=== PATIENT | male | born 1995 | race Caucasian/White ===

== ENCOUNTER 2021-11-21 16:03 | Emergency (ER) | payer OTHER ==
[~2021-11-21 16:03] MED LIST: DULERA 100 MCG8.8 GM INH; PROAIR HFA8.5 GM INH
[2021-11-21 16:34] LABS: HEMOGLOBIN 14.4 gm/dl (14.0-17.5); RED BLOOD COUNT 5.19 M/UL (4.20-5.50); WHITE BLOOD COUNT 8.5 K/UL (4.5-11.0)
[2021-11-21 16:56] LABS: BUN/CREATININE RATIO 15 (0-10)
[2021-11-21] MEDS ORDERED: PROTONIX 40 MG40 M1 PO (21:39)
== END 2021-11-21 21:52 | disposition home or self-care (01) ==
LOC: ER1 16:03
DX: R07.89 Other chest pain (principal)
CPT/HCPCS: 71046; 80053; 82550; 82553; 84484; 85025; 93005; 96374; 99285; C9113